=== PATIENT | female | born 1945 | race Caucasian/White ===

== ENCOUNTER → 2016-11-24 | Outpatient (CLI) | payer MEDICARE, OTHER ==
--- NOTE | 2016-11-24 17:30 | US ---
EXAMINATION TYPE: US thyroid st tissue head/neck DATE OF EXAM: 11/24/2016 COMPARISON: Thyroid ultrasound 04/18/2016 CLINICAL HISTORY: E04.1 NON TOXIC GOITER. follow up GLAND SIZE: Right Lobe: 3.8 x 1.3 x 1.1 cm Overall Parenchyma: heterogenous Left Lobe: 4.8 x 1.6 x 1.5 cm Overall Parenchyma: heterogeneous Isthmus Thickness: 0.2 cm NODULES RIGHT: # of nodules measured on right: 2 1. 0.5 X 0.6 x 0.5 cm hypoechoic solid nodule at the lower pole with well-defined margins; . This nodule is wider than tall and shows no intranodular vascularity. Prior size: 0.7 x 0.5 x 0.6 cm 2. 0.7 X 0.6 x 0.6 cm hypoechoic solid nodule at the lower pole with well-defined margins; . This n odule is wider than tall and shows no intranodular vascularity. Prior size: 0.7 x 0.5 x 0.6 cm LEFT: # of nodules measured on left: 2 1. 1.5 X 1.0 x 1.2 cm hypoechoic solid nodule at the mid pole with well-defined margins; . This no dule is wider than tall and shows intranodular vascularity. Prior size: 1.5 x 1.1 x 0.6 cm 2. 1.2 X 0.9 x 1.0 cm hypoechoic solid nodule at the lower pole with well-defined margins; . This n odule is wider than tall and shows intranodular vascularity. Prior size: 1.2 x 1.0 x 1.0 cm ISTHMUS: # of nodules measured in the isthmus: 0 Bilateral neck scanned, no evidence of lymphadenopathy. nodules as describes, gland is bilaterally heterogeneous, third small nodule on right not definitely seen today IMPRESSION: There are bilateral findings. There is no adverse change compared to old exam.
== END | disposition home or self-care (01) ==
LOC: RADUSWWP 16:52
PROVIDERS: ATTEND Family Medicine
DX: E04.2 Nontoxic multinodular goiter (principal)
CPT/HCPCS: 76536

== ENCOUNTER → 2017-01-26 | Outpatient (CLI) | payer MEDICARE, OTHER ==
--- NOTE | 2017-01-29 10:16 | MM ---
Reason for exam: screening (asymptomatic). Last mammogram was performed 4 years and 6 months ago. History: Patient is postmenopausal and history of other cancer. Implant Removal of both breasts, 2001. 2 excisional biopsies of the right breast. Took estrogen for 2 years. Physical Findings: A clinical breast exam by your physician is recommended on an annual basis and results should be correlated with mammographic findings. MG 3D Screening Mammo W/Cad Bilateral CC and MLO view(s) were taken. Prior study comparison: August 06, 2012, bilateral digital screening mammo w/CAD. July 28, 2011, bilateral digital screening mammo w/CAD. The breast tissue is heterogeneously dense. This may lower the sensitivity of mammography. Benign calcifications. There is no discrete abnormality. No significant changes when compared with prior studies. ASSESSMENT: Benign, BI-RAD 2 RECOMMENDATION: Routine screening mammogram of both breasts in 1 year.
== END | disposition home or self-care (01) ==
LOC: RADMAMWWP 11:16
PROVIDERS: ATTEND Family Medicine
DX: Z12.31 Encounter for screening mammogram for malignant neoplasm of breast (principal)
CPT/HCPCS: 77063; G0202

== ENCOUNTER 2020-12-29 12:43 | Observation (INO) | payer MEDICARE, OTHER ==
[2020-12-29] MEDS ORDERED: HYDROmorphone 0.5 MG/0.5 ML SYRINGE IVP STA (13:23)
[2020-12-29] MEDS ORDERED: KETOROLAC 15 MG/ML 1 ML VIAL IVP STA (13:23)
[2020-12-29] MEDS ORDERED: SODIUM CHLORIDE 0.9% 500 ML 500 ML IV STA (13:23)
--- NOTE | 2020-12-29 13:31 | ED ---
General Adult HPI - General Chief complaint: Extremity Problem,Nontraumatic Stated complaint: pain down both legs Time Seen by Provider: 12/29/20 13:00 Source: patient, RN notes reviewed, old records reviewed Mode of arrival: wheelchair Limitations: no limitations - History of Present Illness Initial comments: This a 75-year-old female who presents emergency Department complaining of bilateral back pain for a month and a half. Patient states 15 years ago she had back surgery she said it was quite extensive but doesn't know what the exact surgery was. Patient states that her back pain started again about a month ago and it radiates down both of her legs. Patient states one time at the right leg 1 tablets left and is definitely exacerbated by movement. Patient denies any areas of numbness or weakness. Patient denies urinary incontinence or stool incontinence. Patient denies any recent injury or trauma. Patient also states that over the same period of time she's had some right flank pain to right upper quadrant abdominal pain. Patient denies any nausea vomiting diarrhea. Patient states 2 weeks ago she was treated for urinary tract infection. Patient denies any fever chills or cough. Patient denies any headache patient denies numbness weakness. Patient states when the pain hits she almost falls because her legs give out for that moment of pain. - Related Data Home Medications Medication Instructions Recorded Confirmed Atenolol [Tenormin] 50 mg PO HS 12/29/20 12/29/20 Cholecalciferol [Vitamin D3 (25 25 mcg PO DAILY 12/29/20 12/29/20 Mcg = 1000 Iu)] Diazepam [Valium] 10 mg PO DAILY PRN 12/29/20 12/29/20 Gabapentin [Neurontin] 300 mg PO TID 12/29/20 12/29/20 Meclizine [Antivert] 25 mg PO TID PRN 12/29/20 12/29/20 Simvastatin [Zocor] 40 mg PO HS 12/29/20 12/29/20 Allergies Allergy/AdvReac Type Severity Reaction Status Date / Time codeine AdvReac Nausea & Verified 12/29/20 15:01 Vomiting morphine AdvReac Rash/Hives Verified 12/29/20 15:01 Review of Systems ROS Statement: Those systems with pertinent positive or pertinent negative responses have been documented in the HPI. ROS Other: All systems not noted in ROS Statement are negative. Past Medical History Past Medical History: Hypertension History of Any Multi-Drug Resistant Organisms: None Reported Past Surgical History: Orthopedic Surgery Additional Past Surgical History / Comment(s): back surgery. Smoking Status: Current every day smoker Past Alcohol Use History: None Reported Past Drug Use History: None Reported General Exam - General Exam Comments Initial Comments: GENERAL: Patient is well-developed and well-nourished. Patient is nontoxic and well- hydrated and is in mild distress. ENT: Neck is soft and supple. No significant lymphadenopathy is noted. Oropharynx is clear. Moist mucous membranes. Neck has full range of motion without eliciting any pain. EYES: The sclera were anicteric and conjunctiva were pink and moist. Extraocular movements were intact and pupils were equal round and reactive to light. Eyelids were unremarkable. PULMONARY: Unlabored respirations. Good breath sounds bilaterally. No audible rales rhonchi or wheezing was noted. CARDIOVASCULAR: There is a regular rate and rhythm without any murmurs gallops or rubs. ABDOMEN: Soft and nontender with normal bowel sounds. SKIN: Skin is clear with no lesions or rashes and otherwise unremarkable. NEUROLOGIC: Patient is alert and oriented x3. Cranial nerves II through XII are grossly intact. Motor and sensory are also intact. Normal speech, volume and content. Symmetrical smile. Patient has a straight leg test is positive more so on the right and at about 30. Patient has normal perineum sensation. Patient has no numbness or weakness. Movement rolling to the left or right seems extremely exacerbate her pain. MUSCULOSKELETAL: Normal extremities with adequate strength and full range of motion. LYMPHATICS: No significant lymphadenopathy is noted PSYCHIATRIC: Normal psychiatric evaluation. Limitations: no limitations Course Vital Signs 12/29/20 12:55 Temperature 98.2 F Pulse Rate 83 Respiratory 19 Rate Blood Pressure 135/55 O2 Sat by Pulse 97 Oximetry Medical Decision Making - Medical Decision Making I will back and into reevaluate the patient she was feeling somewhat better with but with any movement she was in excruciating pain again and she didn't feel comfortable going home because she didn't and should be able to get around and she had no one to help her. Patient received Toradol 0.5 of Dilaudid and some Valium well in the emergency department and she was feeling better without movement but with movement the pain was just as bad I spoke with Dr. Rios agreed to admit the patient admitted the patient I wrote admitting orders. I consult the neurology - Lab Data Result diagrams: 12/29/20 13:46 12/29/20 13:46 Lab Results 12/29/20 12/29/20 12/29/20 Range/Units 13:46 13:46 16:05 WBC 9.8 (3.8-10.6) k/uL RBC 4.28 (3.80-5.40) m/uL Hgb 13.9 (11.4-16.0) gm/dL Hct 41.9 (34.0-46.0) % MCV 97.8 (80.0-100.0) fL MCH 32.5 (25.0-35.0) pg MCHC 33.2 (31.0-37.0) g/dL RDW 13.1 (11.5-15.5) % Plt Count 202 (150-450) k/uL MPV 7.3 Neutrophils % 76 % Lymphocytes % 13 % Monocytes % 8 % Eosinophils % 1 % Basophils % 1 % Neutrophils # 7.5 (1.3-7.7) k/uL Lymphocytes # 1.2 (1.0-4.8) k/uL Monocytes # 0.8 (0-1.0) k/uL Eosinophils # 0.1 (0-0.7) k/uL Basophils # 0.1 (0-0.2) k/uL Sodium 140 (137-145) mmol/L Potassium 3.8 (3.5-5.1) mmol/L Chloride 103 (98-107) mmol/L Carbon Dioxide 30 (22-30) mmol/L Anion Gap 7 mmol/L BUN 16 (7-17) mg/dL Creatinine 0.81 (0.52-1.04) mg/dL Est GFR (CKD-EPI)AfAm 82 (>60 ml/min/1.73 sqM) Est GFR (CKD-EPI)NonAf 71 (>60 ml/min/1.73 sqM) Glucose 148 H (74-99) mg/dL Calcium 8.5 (8.4-10.2) mg/dL Total Bilirubin 1.1 (0.2-1.3) mg/dL AST 21 (14-36) U/L ALT 10 (4-34) U/L Alkaline Phosphatase 74 (38-126) U/L Total Protein 6.3 (6.3-8.2) g/dL Albumin 3.6 (3.5-5.0) g/dL Amylase 46 (30-110) U/L Lipase 46 (23-300) U/L Urine Color Light Yellow Urine Appearance Clear (Clear) Urine pH 7.0 (5.0-8.0) Ur Specific [place] 1.003 (1.001-1.035) Urine Protein Negative (Negative) Urine Glucose (UA) Negative (Negative) Urine Ketones Negative (Negative) Urine Blood Trace H (Negative) Urine Nitrite Negative (Negative) Urine Bilirubin Negative (Negative) Urine Urobilinogen <2.0 (<2.0) mg/dL Ur Leukocyte Esterase Negative (Negative) Urine RBC 1 (0-5) /hpf Urine WBC 1 (0-5) /hpf Ur Squamous Epith Cells <1 (0-4) /hpf Disposition Clinical Impression: Bilateral sciatica Disposition: ADMITTED IP TO THIS [facility] Referrals: Michael Humphreys DO [Primary Care Provider] - 1-2 days Time of Disposition: 16:42
[2020-12-29 13:57] LABS: Basophils # (A) 0.1 k/uL (0-0.2); Basophils % (A) 1 %; Eosinophils # (A) 0.1 k/uL (0-0.7); Eosinophils % (A) 1 %; HCT 41.9 % (34.0-46.0); HGB 13.9 gm/dL (11.4-16.0); Lymphocytes # (A) 1.2 k/uL (1.0-4.8); Lymphocytes % (A) 13 %; MCH 32.5 pg (25.0-35.0); MCHC 33.2 g/dL (31.0-37.0); MCV 97.8 fL (80.0-100.0); Mean Platelet Volume 7.3; Monocytes # (A) 0.8 k/uL (0-1.0); Monocytes % (A) 8 %; Neutrophils # (A) 7.5 k/uL (1.3-7.7); Neutrophils % (A) 76 %; Platelet Count 202 k/uL (150-450); RBC 4.28 m/uL (3.80-5.40); RDW 13.1 % (11.5-15.5); WBC 9.8 k/uL (3.8-10.6)
[2020-12-29 14:08] LABS: Albumin 3.6 g/dL (3.5-5.0); Calcium 8.5 mg/dL (8.4-10.2); Potassium 3.8 mmol/L (3.5-5.1); Total Bilirubin 1.1 mg/dL (0.2-1.3); Total Protein 6.3 g/dL (6.3-8.2)
--- NOTE | 2020-12-29 14:56 | XR ---
EXAMINATION TYPE: XR lumbosacral spine min 4V DATE OF EXAM: 12/29/2020 CLINICAL HISTORY: Back pain radiating down both legs. History of prior back surgery. TECHNIQUE: Frontal, lateral, and oblique images of the lumbar spine are obtained. COMPARISON: None FINDINGS: Patient is status post bilateral laminectomy from at least L3-L5, and bony fusion changes from L2 through L5. There is levocurvature of the lumbar spine. Decreased osseous mineralization. The re is likely bony fusion of L5 and S1 vertebral bodies. Multiple spondylolistheses as follows: Grade 1 retrolisthesis of L1 on L2, grade 1 retrolisthesis of L2 on L3, grade 1 anterolisthesis of L3 on L4 , grade 1 anterolisthesis of L4 on L5. Vertebral body heights are normal with no evidence of acute di splaced fracture. Calcified atherosclerotic disease of the abdominal aorta. IMPRESSION: 1. No acute fracture of the lumbar spine. 2. Decreased osseous mineralization. 3. Postsurgical fusion and laminectomy changes of the lumbar spine. 4. Multilevel grade 1 spondylolistheses as above.
[2020-12-29] MEDS: DIAZEPAM 5 MG/ML 2 ML INJ IVP STA ×2 (15:34→15:35)
[2020-12-29 16:09] LABS: Appearance,Urine Clear (Clear); Bilirubin,Urine Negative (Negative); Blood,Urine Trace (Negative); Color,Urine Light Yellow; Glucose,Urine (UA) Negative (Negative); Ketones,Urine Negative (Negative); Leukocyte Esterase,Urine Negative (Negative); Nitrite,Urine Negative (Negative); Protein,Urine Negative (Negative); RBC,Urine 1 /hpf (0-5); Specific Gravity,Urine 1.003 (1.001-1.035); Squamous Epithelial Cell,Urine <1 /hpf (0-4); Urobilinogen,Urine <2.0 mg/dL (<2.0); WBC,Urine 1 /hpf (0-5)
[2020-12-29] MEDS ORDERED: methylPREDNISolone SOD SUCCI 125 MG/2 ML VIAL IV STA (16:42)
[2020-12-29] MEDS ORDERED: SODIUM CHLORIDE 0.9% 1,000 ML IV ONE (16:42)
[2020-12-29] MEDS ORDERED: HYDROmorphone 0.5 MG/0.5 ML SYRINGE IVP PRN (16:44)
[2020-12-29] MEDS: KETOROLAC 15 MG/ML 1 ML VIAL IVP SCH ×2 (17:52→21:19)
[2020-12-29] MEDS ORDERED: MECLIZINE 25 MG TAB PO PRN (18:17)
[2020-12-29] MEDS ORDERED: diazePAM 5 MG TAB PO PRN (18:17)
[2020-12-29] MEDS: atenoloL 50 MG TAB PO SCH (20:48)
[2020-12-29] MEDS: ATORVASTATIN 20 MG TAB PO SCH (20:48)
[2020-12-29] MEDS: GABAPENTIN 300 MG CAP PO SCH (21:19)
[2020-12-29] MEDS ORDERED: CYCLOBENZAPRINE 5 MG TAB PO PRN (21:21)
[2020-12-29] MEDS ORDERED: NAPROXEN 250 MG TAB PO STA (21:21)
--- NOTE | 2020-12-29 22:01 | P.HPIM ---
History of Present Illness H&P Date: 12/29/20 Chief Complaint: Acute and chronic low back pain History of presenting complaint: This is a pleasant 75-year-old patient of Dr. Humphreys. Chronic stable medical conditions include hyperlipidemia, essential hypertension, vitamin D deficiency. Patient had lower back surgery many years ago. On November 19 patient had to go to the urgent care as she developed rather significant pain in the lower back. It was felt that this could be kidney stones. She felt as about had hit her back. The pain was coming around to the front. Patient's back pain is gone and worse. No change in no urine symptoms. Denies any fevers. In the ER was having even trouble rolling over. Patient is started on IV Toradol which she felt better. When I walked in the room she was holding the IV pole and neck he took a few steps. Review of systems: GEN.: None EYES: None HEENT: None NECK: None RESPIRATORY: None CARDIOVASCULAR: None GASTROINTESTINAL: None GENITOURINARY: None MUSCULOSKELETAL: [Joint pains LYMPHATICS: None HEMATOLOGICAL: None PSYCHIATRY: None NEUROLOGICAL: None Past medical history to include: Hyperlipidemia, hypertension, chronic low back pain, vitamin D deficiency Social history: Patient has a custody of 47-year-old granddaughter.. Smoker. No alcohol. Family history: Reviewed, noncontributory to presentation Physical examination: VITAL SIGNS: 98.2, 91, 20, 121/57, 93% room air GENERAL: BMI 30.4, sitting up, not in distress. EYES: Pupils equal. Conjunctiva normal. HEENT: External appearance of nose and ears normal, oral cavity grossly normal. NECK: JVD not raised; masses not palpable. HEART: First and second heart sounds are normal; no edema. LUNGS: Respiratory rate normal; decreased breath sounds. ABDOMEN: Soft, nontender, liver spleen not palpable, no masses palpable. PSYCH: Alert and oriented x3; mood and affect normal MUSCULAR skeletal: Patient has a scar in the lower back. Evidence of osteoarthritis in multiple joints limited motion of the spine. Patient noticed to hold off port and take a few steps in the room.. NEUROLOGICAL: Cranial nerves grossly intact; no facial asymmetry, power and sensation grossly intact. LYMPHATICS: No lymph nodes palpable in the axilla and neck INVESTIGATIONS, reviewed in the clinical context: WBC 9.8 hemoglobin 13.9 platelets 202 potassium 3.8 creatinine 0.81 UA showing trace blood. Lumbar spine x-ray: Status post bilateral laminectomy from L3 to L5. Bony fusion changes. From L2 through L5. Decrease mineralization. Multiple spondylolisthesis. No obvious fractures reported. Assessment and plan: -Acute on chronic low back pain in a patient who had surgery many years ago that possibly included bony fusion of L2 through L5. Most likely disc herniation 0 nephropathy. Patient is put on scheduled naproxen, Tylenol, Flexeril, steroids. Increase activity as tolerated. Consultation to orthopedic spine -Hyperlipidemia Continue Zocor -Essential hypertension Continue Tenormin -Obesity BMI 30.4 Weight loss measures Patient started on NSAIDs, Flexeril, Tylenol, heating pad, steroids. Consultation made to orthopedic spine. Subcu Lovenox for DVT prophylaxis. Care was discussed with the patient. Questions answered. Past Medical History Past Medical History: Hypertension History of Any Multi-Drug Resistant Organisms: None Reported Past Surgical History: Orthopedic Surgery Additional Past Surgical History / Comment(s): back surgery. Smoking Status: Current every day smoker Past Alcohol Use History: None Reported Past Drug Use History: None Reported Medications and Allergies Home Medications Medication Instructions Recorded Confirmed Type Atenolol [Tenormin] 50 mg PO HS 12/29/20 12/29/20 History Cholecalciferol [Vitamin D3 (25 25 mcg PO DAILY 12/29/20 12/29/20 History Mcg = 1000 Iu)] Diazepam [Valium] 10 mg PO DAILY PRN 12/29/20 12/29/20 History Gabapentin [Neurontin] 300 mg PO TID 12/29/20 12/29/20 History Meclizine [Antivert] 25 mg PO TID PRN 12/29/20 12/29/20 History Simvastatin [Zocor] 40 mg PO HS 12/29/20 12/29/20 History Allergies Allergy/AdvReac Type Severity Reaction Status Date / Time codeine AdvReac Nausea & Verified 12/29/20 15:01 Vomiting morphine AdvReac Rash/Hives Verified 12/29/20 15:01 Physical Exam Vitals: Vital Signs Temp Pulse Pulse Pulse Resp BP BP 12/29/20 18:45 98.2 F 91 20 121/57 12/29/20 17:40 98.6 F 80 18 138/53 12/29/20 12:55 98.2 F 83 19 135/55 Pulse Ox 12/29/20 18:45 93 L 12/29/20 17:40 93 L 12/29/20 12:55 97 Intake and Output 12/29/20 12/29/20 12/29/20 06:59 14:59 22:59 Intake Total 200 Balance 200 Intake: Oral 200 Other: # Voids 1 Weight 73.028 kg 73.028 kg Results CBC & Chem 7: 12/29/20 13:46 12/29/20 13:46 Labs: Abnormal Lab Results - Last 24 Hours (Table) 12/29/20 12/29/20 Range/Units 13:46 16:05 Glucose 148 H (74-99) mg/dL Urine Blood Trace H (Negative) Thrombosis Risk Factor Assmnt - Choose All That Apply Any of the Below Risk Factors Present?: No Other Risk Factors: Yes Each Risk Factor Represents 3 Points: Age 75 years or older Thrombosis Risk Factor Assessment Total Risk Factor Score: 3 Thrombosis Risk Factor Assessment Level: Moderate Risk
[2020-12-29] MEDS: ENOXAPARIN 40 MG/0.4 ML SYRINGE SQ SCH (22:48)
[2020-12-29] MEDS: ACETAMINOPHEN TAB 325 MG TAB PO SCH (22:48)
[2020-12-29] MEDS: predniSONE 20 MG TAB PO SCH (22:49)
[2020-12-29] MEDS: ZOLPIDEM 5 MG TAB PO SCH (22:50)
[2020-12-30] MEDS: ACETAMINOPHEN TAB 325 MG TAB PO SCH ×4 (00:06→18:19)
[2020-12-30] MEDS: CHOLECALCIFEROL 25 MCG (1000 IU) TABLET PO SCH (08:12)
[2020-12-30] MEDS: predniSONE 20 MG TAB PO SCH (08:12)
[2020-12-30] MEDS: GABAPENTIN 300 MG CAP PO SCH ×3 (08:13→21:14)
[2020-12-30] MEDS: NAPROXEN 250 MG TAB PO SCH ×3 (08:14→21:14)
--- NOTE | 2020-12-30 08:41 | CT ---
EXAMINATION TYPE: CT lumbar spine wo con DATE OF EXAM: 12/30/2020 COMPARISON: 12/29/2020 plain film HISTORY: Sciatica, history of lumbar decompression and fusion CT DLP: 584.2 mGycm CONTRAST: None TECHNIQUE: CT of the lumbar spine is performed on a spiral scan at 3 mm thick sections. Reconstructed images are performed in the coronal and sagittal planes. FINDINGS: T10-T11: There is loss of disc height this level. No focal disc herniation or significant disc bulge is evident. No spinal canal stenosis present. T11-12: There is loss of disc height. There may be fusion through this disc level. No focal disc abhijeet iations are evident. No spinal canal stenosis or neural foraminal stenosis is present. T12-L1: Vacuum disc phenomenon is present. Mild residual disc bulge may be present. There is a retrol isthesis of T12 on L1. No spinal canal stenosis L1-L2: Broad-based disc bulge is present with anterior thecal sac contact. No spinal canal stenosis i s present. Right and left foraminal stenosis is present. L2-L3: There is loss of disc height at this level. No spinal canal stenosis or neural foraminal steno sis present. L3-L4: There is an anterior listhesis of L3 intrarenal 4. Marked facet changes are present. Spinal ca nal stenosis is present. Endplate spurring and ligament calcification is present. Left foraminal sten osis is present. L4-L5: There is a grade 1 spondylolisthesis of L4 anteriorly on L5. Laminectomies been performed. No spinal canal stenosis is evident. Disc uncovering is anterior thecal sac contact. Neural foraminal na rrowing is present bilaterally. There is loss of disc height at this level. L5-S1: There is loss of disc height at L5-S1. Laminectomy has been performed. No spinal canal stenosi s is present. Moderate foraminal narrowing is present facet hypertrophy. IMPRESSION: 1. Multilevel degenerative disc changes with loss of disc height. 2. Spondylolisthesis is present throughout multiple levels including the retrolisthesis of T12 on L1 and anterolisthesis of L3 on L4 and L4 anterior to L5. 3. Foraminal stenosis due to facet hypertrophy greatest at L4-5 are present discussed above. 4. Spinal canal stenosis due to facet hypertrophy posterior spinal ligament calcifications and endpla te spurring as well as spondylolisthesis at the L3-4 level.
--- NOTE | 2020-12-30 14:48 | P.GSCN ---
History of Present Illness Consult date: 12/30/20 Reason for Consult: Abdominal pain History of present illness: 75-year-old female comes in the hospital complaining of severe upper abdominal a nd flank pain. Patient says the pain radiates down her leg. History of back surgery and back pain. Patient says symptoms are aggravated by activity. No change in appetite. No nausea or vomiting. Has had some pain in the right upper and left upper quadrants as well. She told us she had recent findings of gallstones. She has had 2 ultrasounds performed at [facility] in the last month. Both reports are reviewed by myself. No gallstones or gallbladder disease is seen. The first ultrasound showed a possible 1.2 cm pancreatic lesion. Second ultrasound did not describe any abnormalities in the pancreas. Liver enzymes normal. We were consulted for right upper quadrant p ain. Review of Systems The patient denies any acute changes in vision or hearing, no dysphagia or odynophagia, no chest pain or shortness of breath, no dysuria or hematuria, no headache, no runny nose, no rectal bleeding or melena, no unexplained weight loss Past Medical History Past Medical History: Hypertension History of Any Multi-Drug Resistant Organisms: None Reported Past Surgical History: Orthopedic Surgery Additional Past Surgical History / Comment(s): back surgery. Smoking Status: Current every day smoker Past Alcohol Use History: None Reported Past Drug Use History: None Reported Medications and Allergies Home Medications Medication Instructions Recorded Confirmed Type Atenolol [Tenormin] 50 mg PO HS 12/29/20 12/29/20 History Cholecalciferol [Vitamin D3 (25 25 mcg PO DAILY 12/29/20 12/29/20 History Mcg = 1000 Iu)] Diazepam [Valium] 10 mg PO DAILY PRN 12/29/20 12/29/20 History Gabapentin [Neurontin] 300 mg PO TID 12/29/20 12/29/20 History Meclizine [Antivert] 25 mg PO TID PRN 12/29/20 12/29/20 History Simvastatin [Zocor] 40 mg PO HS 12/29/20 12/29/20 History Allergies Allergy/AdvReac Type Severity Reaction Status Date / Time codeine AdvReac Nausea & Verified 12/29/20 15:01 Vomiting morphine AdvReac Rash/Hives Verified 12/29/20 15:01 Surgical - Exam Vital Signs Temp Pulse Resp BP Pulse Ox 98.2 F 83 19 135/55 97 12/29/20 12:55 12/29/20 12:55 12/29/20 12:55 12/29/20 12:55 12/29/20 12:55 Physical exam: General: Well-developed, well-nourished HEENT: Normocephalic, sclerae nonicteric Abdomen: Mild upper abdominal tenderness right greater than left, nondistended Extremities: No edema Neuro: Alert and oriented Results - Labs 12/29/20 13:46 12/29/20 13:46 Abnormal Lab Results - Last 24 Hours (Table) 12/29/20 Range/Units 16:05 Urine Blood Trace H (Negative) Assessment and Plan (1) Abdominal pain Narrative/Plan: 75-year-old female with upper abdominal pain. Discuss case with Dr. montenegro also the patient. Will order CT abdomen at this time. Previously ultrasound was ordered. We will cancel that as she has had 2 of these recently. Clinically doubt pancreaticobiliary source of pain. Current Visit: Yes Status: Acute Code(s): R10.9 - UNSPECIFIED ABDOMINAL PAIN SNOMED Code(s): 21449216
--- NOTE | 2020-12-30 17:59 | P.PAINCN ---
History of Present Illness - Reason for Consult Consult date: 12/30/20 - History of Present Illness This is 75 years old female, with a history of chronic,stable low back pain, she reported that over the last 6 weeks she started having severe upper and low back pain, the upper back pain radiated anteriorly, and she is also having severe low back pain which is radiated to the buttock bilaterally, intensity of the pain increased over the last few weeks and is not controlled with the current main medication,the pain interfere with her ability to ambulate, she denies numbness or tingling sensation, she feels some weakness in her lower extremity, patient had a history of lumbar laminectomy surgery done previously, she denies any change in the bowel movement or urination, patient currently on Tylenol and Neurontin 300 mg 3 times a day, Flexeril 5 mg 3 times a day, naproxen 250 twice a day, prednisone 60 mg, and she reported that the current medication is not helping to control the pain Past Medical History Past Medical History: Hypertension History of Any Multi-Drug Resistant Organisms: None Reported Past Surgical History: Orthopedic Surgery Additional Past Surgical History / Comment(s): back surgery. Smoking Status: Current every day smoker Past Alcohol Use History: None Reported Past Drug Use History: None Reported Medications and Allergies Home Medications Medication Instructions Recorded Confirmed Type Atenolol [Tenormin] 50 mg PO HS 12/29/20 12/29/20 History Cholecalciferol [Vitamin D3 (25 25 mcg PO DAILY 12/29/20 12/29/20 History Mcg = 1000 Iu)] Diazepam [Valium] 10 mg PO DAILY PRN 12/29/20 12/29/20 History Gabapentin [Neurontin] 300 mg PO TID 12/29/20 12/29/20 History Meclizine [Antivert] 25 mg PO TID PRN 12/29/20 12/29/20 History Simvastatin [Zocor] 40 mg PO HS 12/29/20 12/29/20 History Allergies Allergy/AdvReac Type Severity Reaction Status Date / Time codeine AdvReac Nausea & Verified 12/29/20 15:01 Vomiting morphine AdvReac Rash/Hives Verified 12/29/20 15:01 Physical Exam Vitals: Vital Signs Temp Pulse Pulse Resp BP Pulse Ox 12/30/20 14:33 98.0 F 96 79 18 138/73 96 12/30/20 07:00 97.5 F L 65 14 165/72 94 L 12/30/20 01:55 97.4 F L 67 20 137/69 93 L 12/29/20 20:00 20 12/29/20 18:45 98.2 F 91 20 121/57 93 L Intake and Output 12/30/20 12/30/20 12/30/20 06:59 14:59 22:59 Intake Total 1340 Balance 1340 Intake: Intake, IV Titration 1100 Amount Sodium Chloride 0.9% 1, 600 000 ml @ 50 mls/hr IV . Q20H ONE Rx#:[id number] Sodium Chloride 0.9% 500 500 ml 500 ml @ 999 mls/hr IV .Q31M STA Rx#:[id number] Oral 240 Other: Voiding Method Toilet # Voids 3 1 Physical Examinations : -Constitutiona : Cooperative , not in acute distress . -HEENT : nech : supple , no Lymphadenopathy , normal thyroid size . : eyes : no ptosis , no icterus, no photophobia . - neurologic : Cranial nerve II to XII intact , no focal neurological deffecit . -psychatric : alert , oriented X 3 , appropriate affect , intact judgment and insight . -Lymphatic : no Lymphadenopathy . - musculoskeltal : Lumber spine moter stegnth lower extremities ,thigh and legs 4/5 Right side , 4/5 Left side deep tendon reflexes : normal Knee Jerk , normal ankle Jerk lumber facet Loading Test =positive Right , positive Left Range of motion of the lumbar spine Flexion 30 degrees, extension 10 degrees strait leg raising test = negative bilaterally Fabere test= negative bilaterally. Sever tenderness over the Sacroiliac joint on the Right , and Left sides Gaenslen test= positive right ,and positive left . Seated flexion test= positive right ,and positive Left . Distraction test= positive bilaterally Multiple trigger point identified in the upper and mid and lower lumbar paravertebral muscles. Results CBC & Chem 7: 12/29/20 13:46 12/29/20 13:46 Comments: MRI of the lumbar spine= L5 -S1 lumbar laminectomy ,foraminal stenosis at L4 5, spinal canal stenosis at L3 4, multilevel lumbar facet arthropathy At L3 4 L4 5 and L5-S1, Assessment and Plan Plan: Assessment and plan=1-bilateral sacroiliitis. 2-myofascial pain syndrome lumbar paravertebral muscles. 3-lumbar spinal stenosis. 4-lumbar spondylosis with lumbar facet arthropathy. 5-history of lumbar laminectomy surgery at L5-S1. Recommend continuing current medications, she could benefit from Lidoderm patch, to be applied to the lumbar area 12 hours on 12 hours off, patient could benefit from bilateral sacroiliac joint steroid injection under fluoroscopy guidance and at the same time we could do trigger point injection lumbar paraspinal muscles, Time with Patient: Greater than 30 PQRS Measure Charge Sheet PQRS Narrative: Blood Pressure [Left Arm] 138/73 Blood Pressure 135/55 Pain Intensity [None] 2 Pain Intensity 3 Pain Scale Used Numeric (1 - 10) Scale Used Numeric (1 - 10) Home Medications: Ambulatory Orders Atenolol [Tenormin] 50 mg PO HS 12/29/20 Cholecalciferol [Vitamin D3 (25 Mcg = 1000 Iu)] 25 mcg PO DAILY 12/29/20 Diazepam [Valium] 10 mg PO DAILY PRN 12/29/20 Gabapentin [Neurontin] 300 mg PO TID 12/29/20 Meclizine [Antivert] 25 mg PO TID PRN 12/29/20 Simvastatin [Zocor] 40 mg PO HS 12/29/20
--- NOTE | 2020-12-30 18:49 | P.CNOR ---
History of Present Illness - [facility] Consult date: 12/30/20 Consult reason: low back pain History of present illness: Patient's a pleasant 75-year-old female who has long-standing history of low back pain. She says that she has been having some sharp pain toward her gluteal area operatively to the left side. She says that she had spine surgery in [address] Rivas for lumbar fusion. She says that she overall has been doing well except past several months she's been having some increased pain in her lower back. He is not sure down her leg she denies any weakness in her lower extremity splint it does make it somewhat difficult for her to get up and around. The pain is sharp explained to her left gluteal area. She denies any fevers chills denies any night sweats denies any changes in bowel bladder function. She does admit to having some constipation over the past week. Review of Systems She denies any fevers chills. Denies any loss of control of bowel bladder function. Denies any weakness in lower extremity is. Denies any new injury. She says she has sharp pains at her gluteal area distally to left side. Past Medical History Past Medical History: Hypertension Additional Past Medical History / Comment(s): History of spinal fusion with Dr. Rivas in 2006. She has had some benefit with epidural steroid injections in the past about one year ago for similar type issues. History of Any Multi-Drug Resistant Organisms: None Reported Past Surgical History: Orthopedic Surgery Additional Past Surgical History / Comment(s): back surgery. Smoking Status: Current every day smoker Past Alcohol Use History: None Reported Past Drug Use History: None Reported Medications and Allergies Home Medications Medication Instructions Recorded Confirmed Type Atenolol [Tenormin] 50 mg PO HS 12/29/20 12/29/20 History Cholecalciferol [Vitamin D3 (25 25 mcg PO DAILY 12/29/20 12/29/20 History Mcg = 1000 Iu)] Diazepam [Valium] 10 mg PO DAILY PRN 12/29/20 12/29/20 History Gabapentin [Neurontin] 300 mg PO TID 12/29/20 12/29/20 History Meclizine [Antivert] 25 mg PO TID PRN 12/29/20 12/29/20 History Simvastatin [Zocor] 40 mg PO HS 12/29/20 12/29/20 History Allergies Allergy/AdvReac Type Severity Reaction Status Date / Time codeine AdvReac Nausea & Verified 12/29/20 15:01 Vomiting morphine AdvReac Rash/Hives Verified 12/29/20 15:01 Physical Examination Osteopathic Statement: *. No significant issues noted on an osteopathic structural exam other than those noted in the History and Physical/Consult. - L Spine: dermatomal strength & reflexes bilateral Strength: hip flexion: 5/5 (She has a well-healed incision at the midline lower back. She has 55 strength risk/plan flexion and hip flexion and knee extension. No pain with initial external rotation of her hips. Performance are soft throughout.) Strength: hip extension: 5/5 (Deep tendon reflexes are adequate. Pulses are intact.) Results - Labs Labs: H & H 12/29/20 Range/Units 13:46 Hgb 13.9 (11.4-16.0) gm/dL Hct 41.9 (34.0-46.0) % Result Diagrams: 12/29/20 13:46 12/29/20 13:46 - Diagnostic results CT Scan - lumbar: report reviewed (There is no new central stenosis but there does appear to be residual foraminal stenosis), image reviewed (CT of the lumbar spine is reviewed and shows prior fusion at lumbar spine and decompression. It appears to be adequately decompressed without evidence of further instability. There is listhesis but it appears to be fused did not position. T) Assessment and Plan Assessment: Lumbar spondylosis Low back pain History of lumbar fusion [address] Rivas Bilateral gluteal pain with some sciatica proximally Plan: Lumbar spondylosis Low back pain History of lumbar fusion [address] Rivas Bilateral gluteal pain with some sciatica proximally The patient spinal fusion appears to be stable. I do not think that she needs any surgical decompression or further surgical treatment for this. She has had some issues with spondylosis in the past and has had some benefit with interventional pain management and I think that she can do well with this. She has been seen with pain management and is planning for an injection tomorrow. She is hopeful that this will help with some of her symptoms as she would like to go home and continue tomorrow as an outpatient. I think that would be appropriate. I do not have further plans of workup and she should continue with conservative management and interventional pain management. She could do well some physical therapy as well. We can see her on an as-needed basis.
--- NOTE | 2020-12-30 19:24 | P.PN ---
Progress Note - Text Progress Note Date: 12/30/20 Chief Complaint: Acute and chronic low back pain History of presenting complaint: This is a pleasant 75-year-old patient of Dr. Humphreys. Chronic stable medical conditions include hyperlipidemia, essential hypertension, vitamin D deficiency. Patient had lower back surgery many years ago. On November 19 patient had to go to the urgent care as she developed rather significant pain in the lower back. It was felt that this could be kidney stones. She felt as about had hit her back. The pain was coming around to the front. Patient's back pain is gone and worse. No change in no urine symptoms. Denies any fevers. In the ER was having even trouble rolling over. Patient is started on IV Toradol which she felt better. When I walked in the room she was holding the IV pole and neck he took a few steps. Admitted with severe arthritis of the lumbar spine. Started on naproxen, baclofen, Tylenol, K pack. December 30: Lower back pain is better. Radiculopathy improved. Patient thinks she was diagnosed with gallstones recently. She was to make sure test of the cause of her presentation. Ultrasound of the abdomen ordered. Surgery consultation done. Oral intake good. No nausea vomiting. Review of systems: Was done for constitutional, cardiovascular, GI, pulmonary. relevant finding as above Active Medications Acetaminophen (Acetaminophen Tab 325 Mg Tab) 650 mg PO Q6HR [facility] Last Admin: 12/30/20 18:19 Dose: 650 mg Documented by: Atenolol (Atenolol 50 Mg Tab) 50 mg PO [facility] Last Admin: 12/29/20 20:48 Dose: 50 mg Documented by: Atorvastatin Calcium (Atorvastatin 20 Mg Tab) 20 mg PO [facility] Last Admin: 12/29/20 20:48 Dose: 20 mg Documented by: Cholecalciferol (Cholecalciferol 25 Mcg (1000 Iu) Tablet) 25 mcg PO DAILY [facility] Last Admin: 12/30/20 08:12 Dose: 25 mcg Documented by: Cyclobenzaprine HCl (Cyclobenzaprine 5 Mg Tab) 5 mg PO TID PRN PRN Reason: Muscle Spasm Enoxaparin Sodium (Enoxaparin 40 Mg/0.4 Ml Syringe) 40 mg SQ [facility] Last Admin: 12/29/20 22:48 Dose: Not Given Documented by: Gabapentin (Gabapentin 300 Mg Cap) 300 mg PO TID [facility] Last Admin: 12/30/20 15:19 Dose: 300 mg Documented by: Hydromorphone HCl (Hydromorphone 0.5 Mg/0.5 Ml Syringe) 0.5 mg IVP Q6HR PRN PRN Reason: Pain Lidocaine (Lidocaine 5% Patch) 1 patch TOPICAL DAILY [facility]; Protocol Meclizine HCl (Meclizine 25 Mg Tab) 25 mg PO TID PRN PRN Reason: DIZZINESS Naproxen (Naproxen 250 Mg Tab) 250 mg PO TID [facility] Last Admin: 12/30/20 15:19 Dose: 250 mg Documented by: Prednisone (Prednisone 20 Mg Tab) 60 mg PO DAILY [facility] Last Admin: 12/30/20 08:12 Dose: 60 mg Documented by: Zolpidem Tartrate (Zolpidem 5 Mg Tab) 5 mg PO HS [facility] Last Admin: 12/29/20 22:50 Dose: 5 mg Documented by: Past medical history to include: Hyperlipidemia, hypertension, chronic low back pain, vitamin D deficiency Social history: Patient has a custody of 47-year-old granddaughter.. Smoker. No alcohol. Family history: Reviewed, noncontributory to presentation Physical examination: VITAL SIGNS: 98, 96, 79, 18, 138/73, 96% room air GENERAL: Laying in bed, more comfortable EYES: Pupils equal. Conjunctiva normal. HEENT: External appearance of nose and ears normal, oral cavity grossly normal. NECK: JVD not raised; masses not palpable. HEART: First and second heart sounds are normal; no edema. LUNGS: Respiratory rate normal; decreased breath sounds. ABDOMEN: Soft, nontender, liver spleen not palpable, no masses palpable. PSYCH: Alert and oriented x3; mood and affect normal MUSCULAR skeletal: Evidence of osteoarthritis in multiple joints limited motion of the spine. INVESTIGATIONS, reviewed in the clinical context: Lumbar spine CT: Multiple level DJD changes. Spondylolisthesis. Multiple level. foraminal stenosis. Spinal canal stenosis. WBC 9.8 hemoglobin 13.9 platelets 202 potassium 3.8 creatinine 0.81 UA showing trace blood. Lumbar spine x-ray: Status post bilateral laminectomy from L3 to L5. Bony fusion changes. From L2 through L5. Decrease mineralization. Multiple spondylolisthesis. No obvious fractures reported. Assessment and plan: -Acute on chronic low back pain in a patient who had surgery many years ago that possibly included bony fusion of L2 through L5. Multiple level DJD with spondylolisthesis, spinal canal stenosis with critical nephropathy. Responded to naproxen, Tylenol, Flexeril, steroids. Increase activity as tolerated. Orthopedic spine did consult pain management team. Planning for steroid injection tomorrow. -Hyperlipidemia Continue Zocor -Essential hypertension Continue Tenormin -Obesity BMI 30.4 Weight loss measures -Rule out gallstones. Dr. Snell was consulted. He called me later in the afternoon that patient ultrasound was negative for gallstones. Care was discussed at length with the patient this morning. Also discussed with Dr. Snell. Plan is to patient and his steroids injection tomorrow. Time spent today about 40 minutes with over 25 minutes of discussion. Hopefully home tomorrow.
[2020-12-30] MEDS ORDERED: LACTULOSE 20 GM/30 ML CUP PO ONE (20:37)
[2020-12-30] MEDS: LIDOCAINE 5% PATCH TOPICAL SCH (21:13)
[2020-12-30] MEDS: atenoloL 50 MG TAB PO SCH (21:14)
[2020-12-30] MEDS: ATORVASTATIN 20 MG TAB PO SCH (21:14)
[2020-12-30] MEDS: ZOLPIDEM 5 MG TAB PO SCH (21:14)
[2020-12-30] MEDS: ENOXAPARIN 40 MG/0.4 ML SYRINGE SQ SCH (21:15)
[2020-12-31] MEDS: ACETAMINOPHEN TAB 325 MG TAB PO SCH ×3 (01:14→13:17)
[2020-12-31] MEDS ORDERED: LIDOCAINE 5% PATCH TOPICAL SCH ×2 (09:00→21:00)
[2020-12-31] MEDS: predniSONE 20 MG TAB PO SCH (09:49)
[2020-12-31] MEDS: CHOLECALCIFEROL 25 MCG (1000 IU) TABLET PO SCH (09:49)
[2020-12-31] MEDS: GABAPENTIN 300 MG CAP PO SCH (09:49)
[2020-12-31] MEDS: LIDOCAINE 5% PATCH TOPICAL SCH (09:50)
[2020-12-31] MEDS: NAPROXEN 250 MG TAB PO SCH (09:51)
[2020-12-31] MEDS ORDERED: LACTATED RINGERS 1,000 ML IV ONE (10:58)
[2020-12-31 11:02] VITALS: RESP 18
[2020-12-31] MEDS ORDERED: ROPIVACAINE 5MG/ML 20ML VIAL ONE (11:21)
[2020-12-31] MEDS ORDERED: TRIAMCINOLONE ACETONIDE 40 MG/ML 1 ML VIAL ONE (11:21)
[2020-12-31] MEDS ORDERED: fentaNYL (PF) 50 MCG/ML 2 ML AMP ONE (11:22)
[2020-12-31] MEDS ORDERED: MIDAZOLAM 2 MG/2 ML VIAL ONE (11:22)
--- NOTE | 2020-12-31 11:35 | P.PCN ---
Date of Procedure: 12/31/20 Surgeon: Arnie Reeder Pathology: none sent Condition: stable Disposition: PACU Description of Procedure: Preoperative diagnoses= bilateral sacroiliac joint dysfunction and sacroiliitis , postlaminectomy pain syndrome Postoperative diagnoses= same as preoperative diagnosis. Procedure= bilateral sacroiliac joint steroid injection under fluoroscopic guidance. Trigger point injection. Anesthesia= local anesthesia with lidocaine 1% and IV moderate conscious sedation by anesthesia Department Estimated blood loss=minimal. Procedure indication= the patient had a history of severe chronic low back pain, diagnosed with sacroiliitis and lumbar sacral facet arthropathy unresponsive to conservative treatment. Procedure description= the patient was seen and identified in the preoperative holding area, risks and benefits and alternative of the procedure and possible complications discussed with the patient, patient signed the consent. an IV was started, and vital signs were monitored and were stable throughout the procedure, patient was placed in the prone position or table and the lumbosacral area was prepped and draped with a sterile fashion, vital signs were closely monitored during the procedure.The left sacroiliac joint was identified on the AP view of fluoroscopy then the C-arm was tilted to the contralateral oblique position to superimpose the anterior and posterior joint lines on each other and to have a unified joint line with the target point at the inferior one third of this line. I used 22-gauge 3-1/2 inch Quincke spinal needle for this procedure and after getting into the sacroiliac joint I injected 20 mg of Kenalog +2 MLS of Ropivacaine 0.5%. Then the right sacroiliac joint was injected in the same manner. Patient tolerated the procedure well without any complication. I then turned my attention into doing the trigger point injection in the lumbar paravertebral musculature. A total of 6 injections were done 3 weeks side of the spine using 25-gauge 1-1/2 inch needle, and 1 mL of ropivacaine 0.5% was injected in each point. The patient returned to supine position after the back was cleaned and a Band- Aid applied, the patient transported to recovery room in stable condition and he was monitored for 30 minutes before she was discharged home in stable condition . patient will follow up with the pain clinic in a few weeks. A copy of the needle placement was saved to the C-arm machine.
--- NOTE | 2020-12-31 13:16 | FL ---
EXAMINATION TYPE: FL guided pain mgmt statistic DATE OF EXAM: 12/31/2020 CLINICAL HISTORY: Bilateral SI injection TECHNIQUE: Fluoroscopy. COMPARISON: None. FINDINGS: Fluoroscopic guidance was provided during procedure performed by Dr. Reeder. A total of 9 seconds of fluoroscopic time was utilized during the procedure and 2 spot images acquired. IMPRESSION: As Above.
[2020-12-31 15:24] VITALS: BP 162/70; PULSE 71; TEMP 97.5
--- NOTE | 2020-12-31 16:52 | P.PN ---
Subjective Progress Note Date: 12/31/20 Principal diagnosis: Abdominal pain Patient doing better today. Still with some back pain that wraps to the front. Pancreatic CAT scan apparently was not obtained and plans are for discharge with outpatient CAT scan. She did undergo pain injections today. Tolerating diet. Objective - Vital Signs Vital signs: Vital Signs Temp 97.5 F L 12/31/20 15:00 Pulse 71 12/31/20 15:00 Resp 18 12/31/20 15:00 BP 162/70 12/31/20 15:00 Pulse Ox 95 12/31/20 15:00 Intake & Output 12/30/20 12/31/20 12/31/20 18:59 06:59 18:59 Intake Total 50 Balance 50 Intake: IV 50 Other: Voiding Method Toilet Toilet Toilet # Voids 1 3 2 # Bowel Movements 2 - Exam Abdomen: Soft, mild epigastric tenderness, nondistended - Labs CBC & Chem 7: 12/29/20 13:46 12/29/20 13:46 Assessment and Plan (1) Abdominal pain Narrative/Plan: Continue diet as tolerated. Agree with plans for discharge and outpatient CAT scan. Status: Acute Code(s): R10.9 - UNSPECIFIED ABDOMINAL PAIN SNOMED Code(s): 57502405
--- NOTE | 2020-12-31 22:58 | P.DS ---
Providers Date of admission: 12/29/20 16:59 Expected date of discharge: 12/31/20 Attending physician: Jaxson Rios Consults: 12/29/20 16:44 Consult Physician Urgent Consulting Provider: Jeb Da Silva Consult Reason/Comments: Bilateral sciatica, intractable back pain Do you want consulting provider notified?: Yes 12/29/20 23:38 Consult to Anesthesia Routine Consulting Provider: Anesthesia,Services Consult Reason/Comments: bilateral sciatica, history of decompression and fusion at lumbar 12/30/20 11:14 Consult Physician Routine Consulting Provider: Tariq Quintana Consult Reason/Comments: RUQ pain Do you want consulting provider notified?: Yes Primary care physician: [facility] Course: Chief Complaint: Acute and chronic low back pain History of presenting complaint: This is a pleasant 75-year-old patient of Dr. Humphreys. Chronic stable medical conditions include hyperlipidemia, essential hypertension, vitamin D deficiency. Patient had lower back surgery many years ago. On November 19 patient had to go to the urgent care as she developed rather significant pain in the lower back. It was felt that this could be kidney stones. She felt as about had hit her back. The pain was coming around to the front. Patient's back pain is gone and worse. No change in no urine symptoms. Denies any fevers. In the ER was having even trouble rolling over. Patient is started on IV Toradol which she felt better. When I walked in the room she was holding the IV pole and neck he took a few steps. Admitted with severe arthritis of the lumbar spine. Started on naproxen, baclofen, Tylenol, K pack. December 30: Lower back pain is better. Radiculopathy improved. Patient thinks she was diagnosed with gallstones recently. She was to make sure test of the cause of her presentation. Ultrasound of the abdomen ordered. Surgery consultation done. Oral intake good. No nausea vomiting. December 31: Low back pain improved. Did receive bilateral sacroiliac joint steroid injection under fluoroscopy. By Dr. Lerner. Patient follow with orthopedic spine as outpatient. And Dr. Snell as outpatient Consultation: Dr. Berry from orthopedics Pain management service Dr. Snell from general surgery Past medical history to include: Hyperlipidemia, hypertension, chronic low back pain, vitamin D deficiency Social history: Patient has a custody of 47-year-old granddaughter.. Smoker. No alcohol. Family history: Reviewed, noncontributory to presentation Physical examination: VITAL SIGNS: 97.5, 71, 18, 162/70, 95% room air GENERAL: Laying in bed, comfortable EYES: Pupils equal. Conjunctiva normal. HEENT: External appearance of nose and ears normal, oral cavity grossly normal. NECK: JVD not raised; masses not palpable. HEART: First and second heart sounds are normal; no edema. LUNGS: Respiratory rate normal; decreased breath sounds. ABDOMEN: Soft, nontender, liver spleen not palpable, no masses palpable. PSYCH: Alert and oriented x3; mood and affect normal MUSCULAR skeletal: Evidence of osteoarthritis in multiple joints limited motion of the spine. INVESTIGATIONS, reviewed in the clinical context: Lumbar spine CT: Multiple level DJD changes. Spondylolisthesis. Multiple level. foraminal stenosis. Spinal canal stenosis. WBC 9.8 hemoglobin 13.9 platelets 202 potassium 3.8 creatinine 0.81 UA showing trace blood. Lumbar spine x-ray: Status post bilateral laminectomy from L3 to L5. Bony fusion changes. From L2 through L5. Decrease mineralization. Multiple spondylolisthesis. No obvious fractures reported. Assessment and plan: -Acute on chronic low back pain in a patient who had surgery many years ago that possibly included bony fusion of L2 through L5. Multiple level DJD with spondy lolisthesis, spinal canal stenosis with critical nephropathy. Responded to naproxen, Tylenol, Flexeril, steroids. Increase activity as tolerated. Bilateral SI joint steroid injection done -Hyperlipidemia Continue Zocor -Essential hypertension Continue Tenormin -Obesity BMI 30.4 Weight loss measures -No gallstones. Dr. Snell was consulted. He called me later in the afternoon that patient u ltrasound was negative for gallstones. Disposition: Home Patient will follow up with Dr. Snell as an outpatient. Also follow with Dr. Berry from orthopedic spine. Plan - Discharge Summary Discharge Rx Participant: No New Discharge Prescriptions: New Naproxen [Naprosyn] 250 mg PO TID #60 tab Cyclobenzaprine [Flexeril] 5 mg PO TID PRN #30 tab PRN Reason: Muscle Spasm predniSONE 10 mg PO DAILY #30 tab Acetaminophen Tab [Tylenol] 650 mg PO Q6HR tab Famotidine [Pepcid] 20 mg PO BID #60 tablet Continue Simvastatin [Zocor] 40 mg PO HS Gabapentin [Neurontin] 300 mg PO TID Atenolol [Tenormin] 50 mg PO HS Meclizine [Antivert] 25 mg PO TID PRN PRN Reason: DIZZINESS Cholecalciferol [Vitamin D3 (25 Mcg = 1000 Iu)] 25 mcg PO DAILY Discontinued Diazepam [Valium] 10 mg PO DAILY PRN PRN Reason: Anxiety Discharge Medication List Atenolol [Tenormin] 50 mg PO HS 12/29/20 [History] Cholecalciferol [Vitamin D3 (25 Mcg = 1000 Iu)] 25 mcg PO DAILY 12/29/20 [History] Gabapentin [Neurontin] 300 mg PO TID 12/29/20 [History] Meclizine [Antivert] 25 mg PO TID PRN 12/29/20 [History] Simvastatin [Zocor] 40 mg PO HS 12/29/20 [History] Acetaminophen Tab [Tylenol] 650 mg PO Q6HR tab 12/31/20 [Rx] Cyclobenzaprine [Flexeril] 5 mg PO TID PRN #30 tab 12/31/20 [Rx] Famotidine [Pepcid] 20 mg PO BID #60 tablet 12/31/20 [Rx] Naproxen [Naprosyn] 250 mg PO TID #60 tab 12/31/20 [Rx] predniSONE 10 mg PO DAILY #30 tab 12/31/20 [Rx] Follow up Appointment(s)/Referral(s): Tariq Quintana MD [Medical Doctor] - 1 Week Michael Humphreys DO [Primary Care Provider] - 1-2 days Jeb Da Silva DO [Doctor of Osteopathic Medicine] - 1 Week Discharge Disposition: HOME SELF-CARE
== END 2020-12-31 16:09 | disposition home or self-care (01) ==
LOC: EC 12:43 → 6NMEDSUR 16:59 → INTOOBSV 16:59 → UNDODISOB 12-31 11:36
PROVIDERS: ADMIT Hospitalist; ATTEND Hospitalist
DX: M48.061 Spinal stenosis, lumbar region without neurogenic claudication (principal); M46.1 Sacroiliitis, not elsewhere classified; M43.16 Spondylolisthesis, lumbar region; M47.26 Other spondylosis with radiculopathy, lumbar region; I10 Essential (primary) hypertension; M13.0 Polyarthritis, unspecified; E55.9 Vitamin D deficiency, unspecified; E78.5 Hyperlipidemia, unspecified; E66.9 Obesity, unspecified; Z68.30 Body mass index [BMI] 30.0-30.9, adult; F17.200 Nicotine dependence, unspecified, uncomplicated; R10.11 Right upper quadrant pain; N28.9 Disorder of kidney and ureter, unspecified; K59.00 Constipation, unspecified; Z79.899 Other long term (current) drug therapy; Z88.5 Allergy status to narcotic agent; Z98.890 Other specified postprocedural states; Z98.1 Arthrodesis status
CPT/HCPCS: 27096; 20552; 77002; 96376; 96372; 96361; 96374; 96375; 99284; 36415; 80053; 82150; 83690; 85025; 81001; 72110; 72131; G0378 ×3; J2250; J3301; J2930; J3360; J1650; J3010; J1885; J7512 ×3; J1170; J2795; G0260

== ENCOUNTER → 2021-02-03 | Outpatient (CLI) | payer MEDICARE, OTHER ==
--- NOTE | 2021-02-03 14:48 | CT ---
EXAMINATION TYPE: CT abdomen w con DATE OF EXAM: 02/03/2021 COMPARISON: 02/03/2021 HISTORY: Right upper quadrant abdominal pain. CT DLP: 584.3 mGycm CONTRAST: CT scan of the abdomen is performed without Oral Contrast and with IV Contrast, patient injected with 100ml mL of Isovue 300. FINDINGS: LUNG BASES-: No visible nodule. No infiltrate. Small hiatal hernia noted. LIVER/GB: No calcified gallstones. No space occupying hepatic lesion. Biliary tree is of normal ca liber. PANCREAS: No inflammation. No distinct mass. SPLEEN: No splenic enlargement. No lesion seen. ADRENALS: No nodule. No thickening. KIDNEYS/BLADDER: No hydronephrosis. No nephrolithiasis. No distinct renal mass. Urinary bladder g rossly unremarkable. BOWEL: Normal appendix. Normal bowel caliber. No inflammation. LYMPH NODES: No greater than 1cm abdominal or pelvic lymph nodes are appreciated. AORTA: No significant abnormality. OSSEOUS STRUCTURES: No significant abnormality is seen. OTHER: No significant additional abnormality is seen. IMPRESSION: 1. No distinct pancreatic lesion identified.
== END | disposition home or self-care (01) ==
LOC: RADCTMAIN 13:02
PROVIDERS: ATTEND Surgery
DX: R10.11 Right upper quadrant pain (principal)
CPT/HCPCS: 82565; 84520; 74160; 36415; Q9967